=== PATIENT | female | born 1945 | race African-American/Black ===

== ENCOUNTER 2017-05-12 15:00 | Emergency (ER) | payer MEDICAID, MEDICARE ==
[~2017-05-12 15:00] MED LIST: ALBU0.63 NEB; AMLO2.5T PO; CINA30TA2 PO; FERR-26 PO; FURO20TA3 PO; HUM100VI SQ; Hydralazine Hcl PO; Isosorbide Mononitrate PO; LEVO100T5 PO; LISI-334 PO; PRED-220 PO; PRED2.5T PO
--- NOTE | 2017-05-12 15:05 | PHYS DOC ---
Past History Past Medical History: Diabetes, Hypertension, Renal Disease, Other Past Surgical History: No Surgical History, Cholecystectomy Alcohol Use: None Drug Use: None Adult General Chief Complaint Chief Complaint: low oxygen saturations [facility] HPI Patient is a 71 year old F who presents with low oxygen saturation. Lakshmi did not wear her CPAP last night. Her daughter states that when she does not wear her CPAP following day she has frequently been found to have low oxygen.. She does not currently feel short of breath however her oxygen saturation were found to be low at [place], her [facility], and by EMS. She has no other associated symptoms. She has no other exacerbating or alleviating factors. Review of Systems Review of Systems Constitutional: Denies fever or chills [] Eyes: Denies change in visual acuity, redness, or eye pain [] HENT: Denies nasal congestion or sore throat [] Respiratory: Negative except history of present illness Cardiovascular: No additional information not addressed in HPI [] GI: Denies abdominal pain, nausea, vomiting, bloody stools or diarrhea [] : Denies dysuria or hematuria [] Musculoskeletal: Denies back pain or joint pain [] Integument: Denies rash or skin lesions [] Neurologic: Denies headache, focal weakness or sensory changes [] Endocrine: Denies polyuria or polydipsia [] All other systems were reviewed and found to be within normal limits, except as documented in this note. Family History Family History No pertinent medical history was reported Current Medications Current Medications Current medications were reviewed Allergies Allergies Allergies Coded Allergies Type Severity Reaction Last Updated Verified amoxicillin Allergy Intermediate 09/30/14 No aspirin Allergy Intermediate 09/30/14 No clavulanic acid Allergy Intermediate 09/30/14 No gatifloxacin Allergy Intermediate 09/30/14 No peanut Allergy Intermediate 09/30/14 No Physical Exam Physical Exam Constitutional: Well developed, well nourished, no acute distress, non-toxic appearance. [] HENT: Normocephalic, atraumatic, bilateral external ears normal, oropharynx moist, no oral exudates, nose normal. [] Eyes: EOMI, conjunctiva normal, no discharge. [] Neck: Normal range of motion, no tenderness, supple, no stridor. [] Cardiovascular:Heart rate regular rhythm, Lungs & Thorax: Bilateral breath sounds clear to auscultation [] diminished bilaterally Abdomen: Bowel sounds normal, soft, no tenderness, no masses, no pulsatile masses. [] Skin: Warm, dry, no erythema, no rash. [] Back: No tenderness, no CVA tenderness. [] Extremities: No tenderness, no cyanosis, no clubbing, ROM intact, no edema. [] Neurologic: Alert and oriented X 3, normal motor function, normal sensory function, no focal deficits noted. [] Psychologic: Affect normal, judgement normal, mood normal. [] Current Patient Data Vital Signs Vital Signs Date Time Temp Pulse Resp B/P (MAP) Pulse Ox O2 Delivery O2 Flow Rate FiO2 05/12/17 17:11 91 24 128/63 (84) 92 Nasal Cannula 4.0 05/12/17 16:00 92 26 122/63 (82) 97 Nasal Cannula 4.0 05/12/17 15:18 99.3 90 28 NonRebreather Mask 99.0 Lab Results Laboratory Tests Test 05/12/17 15:26 05/12/17 15:49 Influenza Type A (Rapid) Negative (NEGATIVE) Influenza Type B (Rapid) Negative (NEGATIVE) White Blood Count 7.9 x10^3/uL (4.0-11.0) Red Blood Count 3.64 x10^6/uL (3.50-5.40) Hemoglobin 11.4 g/dL (12.0-15.5) Hematocrit 35.9 % (36.0-47.0) Mean Corpuscular Volume 99 fL (79-100) Mean Corpuscular Hemoglobin 31 pg (25-35) Mean Corpuscular Hemoglobin Concent 32 g/dL (31-37) Red Cell Distribution Width 13.3 % (11.5-14.5) Platelet Count 190 x10^3/uL (140-400) Neutrophils (%) (Auto) 83 % (31-73) Lymphocytes (%) (Auto) 5 % (24-48) Monocytes (%) (Auto) 11 % (0-9) Eosinophils (%) (Auto) 1 % (0-3) Basophils (%) (Auto) 0 % (0-3) Neutrophils # (Auto) 6.5 x10^3uL (1.8-7.7) Lymphocytes # (Auto) 0.4 x10^3/uL (1.0-4.8) Monocytes # (Auto) 0.8 x10^3/uL (0.0-1.1) Eosinophils # (Auto) 0.1 x10^3/uL (0.0-0.7) Basophils # (Auto) 0.0 x10^3/uL (0.0-0.2) Sodium Level 140 mmol/L (136-145) Potassium Level 5.0 mmol/L (3.5-5.1) Chloride Level 95 mmol/L (98-107) Carbon Dioxide Level 51 mmol/L (21-32) Anion Gap -6 (6-14) Blood Urea Nitrogen 15 mg/dL (7-20) Creatinine 1.1 mg/dL (0.6-1.0) Estimated GFR (Cockcroft-Gault) 59.6 Glucose Level 116 mg/dL (70-99) Calcium Level 10.6 mg/dL (8.5-10.1) FN-Flu-G-Type Natriuretic Peptide 3636 pg/mL (0-124) EKG EKG Normal sinus rhythm with occasional PVCs Radiology/Procedures Radiology/Procedures Chest x-ray Impressions: Mild congestion noted Course & Med Decision Making Course & Med Decision Making Pertinent Labs and Imaging studies reviewed. (See chart for details) [] Dragon Disclaimer Dragon Disclaimer This electronic medical record was generated, in whole or in part, using a voice recognition dictation system. Departure Departure: Impression: Primary Impression: Shortness of breath Additional Impression: Congestive heart failure Disposition: 01 HOME, SELF-CARE Condition: STABLE Referrals: RUBIA ORR MD (PCP) Patient Instructions: Shortness of Breath Additional Instructions: Lakshmi was seen in the emergency department for shortness of breath. No emergency medical condition was found on history or physical exam. She did have labs and imaging consistent with mild exacerbation of CHF. She was given a dose of Lasix in the emergency room with good urine output. She was able to maintain her oxygen saturations on her normal daily oxygen supplementation. She was advised to monitor her weight daily and to continue taking her Lasix. She is advised follow-up with her primary care doctor as soon as possible for further management. Problem Qualifiers Additional Impression: Congestive heart failure Congestive heart failure type: diastolic Congestive heart failure chronicity : acute on chronic Qualified Codes: I50.33 - Acute on chronic diastolic ( congestive) heart failure JOSLYN HENDRICKS MD May 12, 2017 15:05
--- NOTE | 2017-05-12 15:33 | RAD ---
AP portable chest radiograph 05/12/2017 Clinical History: Shortness of breath. An AP portable erect digital radiograph of the chest was obtained. Comparison study is dated 05/26/2015. The cardiac silhouette is mildly enlarged. The thoracic aorta is tortuous. Areas of infiltrate/atelectasis are seen involving both upper lobes, left greater than right. No pneumothorax or definite pleural effusion is seen. Degenerative changes are seen involving the thoracic spine. Impression: Areas of atelectasis and/or infiltrate are seen involving both upper lobes.
[2017-05-12] MEDS ORDERED: FUROSEMIDE 40 MG/4 ML VIAL IVP ONE (15:50)
--- NOTE | 2017-05-12 16:04 | EKG ---
[address] [address] Test Date: 2017-05-12 Test Time: 15:14:04 Pat Name: CYNTHIA ARCHER Department: Room: Gender: F Deportation Examiner: ARELIS : 1945 Requested By: JOSLYN HENDRICKS Order Number: [id number] Reading MD: John Huerta Measurements Intervals [place] Rate: 92 P: 64 [place]: 162 QRS: 116 QRSD: 74 T: 26 QT: 324 QTc: 405 Interpretive Statements SINUS RHYTHM VENTRICULAR PREMATURE COMPLEX(ES) LEFT ATRIAL ABNORMALITY ABNORMAL RIGHT AXIS DEVIATION ABNORMAL ECG Electronically Signed On 05-16-2017 16:32:40 FULL [employer]GE BOOKKEEPER by John Huerta
[2017-05-12 16:22] LABS: INFLUENZA A PATIENT NEGATIVE (NEGATIVE); INFLUENZA B PATIENT NEGATIVE (NEGATIVE)
[2017-05-12 16:24] LABS: BASO % 0 % (0-3); EOS # 0.1 x10^3/uL (0.0-0.7); EOS % 1 % (0-3); HEMATOCRIT 35.9 % (36.0-47.0); HEMOGLOBIN 11.4 g/dL (12.0-15.5); LYMPH # 0.4 x10^3/uL (1.0-4.8); LYMPH % 5 % (24-48); MEAN CORPUSCULAR HEMOGLOBIN 31 pg (25-35); MEAN CORPUSCULAR HGB CONC 32 g/dL (31-37); MEAN CORPUSCULAR VOLUME 99 fL (79-100); MONO # 0.8 x10^3/uL (0.0-1.1); MONO % 11 % (0-9); NEUT # 6.5 x10^3uL (1.8-7.7); NEUT % 83 % (31-73); PLATELET COUNT 190 x10^3/uL (140-400); RED BLOOD COUNT 3.64 x10^6/uL (3.50-5.40); RED CELL DISTRIBUTION WIDTH 13.3 % (11.5-14.5); WHITE BLOOD COUNT 7.9 x10^3/uL (4.0-11.0)
[2017-05-12 16:46] LABS: CALCIUM 10.6 mg/dL (8.5-10.1); CREATININE 1.1 mg/dL (0.6-1.0); GFR 59.6
[2017-05-12 19:35] VITALS: BP 127/61
[2017-05-12 23:07] LABS: % EOS 1 % (0-5); % LYMPHS 7 % (24-48); % MONOS 4 % (0-10); % SEGS 88 % (35-66)
[2017-05-12 23:09] LABS: OVALOCYTES OCC; PLT ESTIMATE ADEQUATE (ADEQUATE); POLYCHROMASIA SLIGHT
== END 2017-05-12 19:50 | disposition home or self-care (01) ==
LOC: ER 15:00
DX: I50.9 Heart failure, unspecified (principal); I11.0 Hypertensive heart disease with heart failure; N28.9 Disorder of kidney and ureter, unspecified; E11.9 Type 2 diabetes mellitus without complications; Z88.1 Allergy status to other antibiotic agents; Z88.6 Allergy status to analgesic agent; Z91.010 Allergy to peanuts
CPT/HCPCS: 36415; 71045; 80048; 83880; 85007; 85025; 87804; 93005; 96374; 99285; J1940

== ENCOUNTER 2017-07-08 19:34 | Emergency (ER) | payer MEDICARE ==
[~2017-07-08] VITALS: Ht 152.4 cm; Wt 78.4 kg
[~2017-07-08 19:34] MED LIST changes: -FERR-26 PO; +FERR325T14 PO
--- NOTE | 2017-07-08 19:53 | ED.ADGEN ---
Past History Past Medical History: COPD, Diabetes, Hypothyroid, Pneumonia, Renal Failure, Other Past Surgical History: Other Alcohol Use: None Drug Use: None Adult General Chief Complaint Chief Complaint " Ok.."- Pt responds minimal to questions- [facility] HPI Patient is a 71 year old female who presents with above hx and complaints of decrease level of awareness through the day per her daughter.. Pt. fell earlier to day...and later today has become more sleepy. Pt. currently pt is extremely sedate. Patient does have a history of sarcoid with marked lung scaring. Patient recently had a pelvic fracture at the first year and was in rehabilitation until 05/19, then came to live with daughter. Pt. fell earlier today when she was getting out of bed. Pt. also had recent history of upper respiratory congestion and did not wear her CPAP last night and today when she took naps. Pt. does have hx of Sleep apnea and nocturnal hypoxia. . Pt. does wear oxygen at 2 lit when sleeping. Pt. has plans to see Dr. Martini at [facility] for her Sarcoid lung problems and follows with a local physician Dr. Rajan at [facility]. No specific ill contacts or recent travel. Patient in past has expressed wishes for full code status. Pt. has hx of CHF and COPD in past. Pt. has hx of multiple food and drug allergies. Pt. has not had any additional pain meds in last 48 hrs. per daughter. Review of Systems Review of Systems Pt is poor historian- min. response to questions and noxious stiumuli- Review systerms per daughter. Constitutional: Denies fever or chills [] Eyes: Denies change in visual acuity, redness, or eye pain [] HENT: Denies nasal congestion or sore throat [] Respiratory: Hx. of cough and shortness of breath [] Cardiovascular: No additional information not addressed in HPI [] GI: Denies abdominal pain, nausea, vomiting, bloody stools or diarrhea [] : Denies dysuria or hematuria [] Musculoskeletal: Denies back pain or joint pain []Hx. Pelvic Fx 05/01/17 Integument: Denies rash or skin lesions [] Neurologic: Denies headache, focal weakness or sensory changes []Hx. of increased confusion this afternoon. Endocrine: Denies polyuria or polydipsia [] All other systems were reviewed and found to be within normal limits, except as documented in this note. Family History Family History Noncontributory to presentation Current Medications Current Medications Current Medications Medications (Trade) Dose Ordered Sig/Kirit Start Time Stop Time Status Last Admin Dose Admin Albuterol/ Ipratropium (Duoneb) 3 ml STK-MED ONCE 07/09/17 03:58 07/09/17 03:59 DC Azithromycin (Zithromax) 500 mg STK-MED ONCE 07/09/17 01:37 07/09/17 01:38 DC Azithromycin 500 mg/Sodium Chloride 250 ml @ 250 mls/hr 1X ONCE 07/08/17 23:30 07/09/17 00:29 DC 07/09/17 01:54 250 MLS/HR Furosemide (Lasix) 40 mg 1X ONCE 07/08/17 22:30 07/08/17 22:58 DC 07/09/17 01:53 40 MG Info (Do NOT chart on this entry -- for MONITORING) 1 each PRN DAILY PRN 07/08/17 23:45 07/09/17 06:08 DC Iohexol (Omnipaque 300 Mg/ml) 75 ml 1X ONCE 07/08/17 23:45 07/08/17 23:46 DC 07/09/17 05:12 75 ML Methylprednisolone Sodium Succinate (SOLU-Medrol 125MG VIAL) 125 mg 1X ONCE 07/08/17 22:30 07/08/17 22:58 DC 07/09/17 01:51 125 MG Midazolam HCl (Versed) 5 mg STK-MED ONCE 07/09/17 00:25 07/09/17 00:26 DC Norepinephrine Bitartrate (Levophed) 4 mg STK-MED ONCE 07/09/17 00:35 07/09/17 00:36 DC Propofol 100 ml @ As Directed STK-MED ONCE 07/09/17 05:55 07/09/17 05:56 DC Sodium Chloride 250 ml @ As Directed STK-MED ONCE 07/09/17 01:37 07/09/17 01:38 DC See nursing for home meds. Allergies Allergies Allergies Coded Allergies Type Severity Reaction Last Updated Verified amoxicillin Allergy Intermediate 05/12/17 No aspirin Allergy Intermediate 05/12/17 No clavulanic acid Allergy Intermediate 05/12/17 No gatifloxacin Allergy Intermediate 05/12/17 No peanut Allergy Intermediate 05/12/17 No Penicillins Allergy Unknown 05/12/17 Yes budesonide Allergy Unknown 05/12/17 Yes codeine Allergy Unknown 05/12/17 Yes formoterol Allergy Unknown 05/12/17 Yes soy Allergy Unknown 05/12/17 Yes Physical Exam Physical Exam Constitutional: moderately acute respiratory distress, very sedated appearance. Trial Bi-pap did not improved LOC. HENT: Normocephalic, atraumatic, bilateral external ears normal, oropharynx moist, no oral exudates, nose rhinorrhea. Upper dentures in. Has a poor gag. Eyes: PERRLA, EOMI, conjunctiva normal, no discharge. [] Neck: Normal range of motion, no tenderness, supple, no stridor. [] JVD sitting position. Cardiovascular:Tachycardia Heart rate regular rhythm, no murmur []PMI to Lt. Lungs & Thorax: Bilateral breath sounds diffuse crackles and wheezes on auscultation [] Abdomen: Bowel sounds normal, soft, no tenderness, liver mass, no pulsatile masses. Multiple old surgery, hernia, scars, mild distention Skin: Warm, dry, no erythema, no rash. Poor turgor Back: No tenderness, no CVA tenderness. [] Extremities: No tenderness, no cyanosis, no clubbing, ROM intact, no edema. Arthritic changes. Neurologic: Alert to name only, moves all extremities with noxious stimuli, very sedated Psychologic: Affect flat and depressed mood, very sedate Current Patient Data Vital Signs Vital Signs Date Time Temp Pulse Resp B/P (MAP) Pulse Ox O2 Delivery O2 Flow Rate FiO2 07/08/17 23:45 98 20 133/59 (83) 96 Room Air 4.0 07/08/17 19:34 99.6 Lab Results Laboratory Tests Test 07/08/17 20:15 07/08/17 20:21 07/08/17 20:39 07/08/17 22:55 White Blood Count 6.1 x10^3/uL (4.0-11.0) Red Blood Count 3.85 x10^6/uL (3.50-5.40) Hemoglobin 11.9 g/dL (12.0-15.5) L Hematocrit 38.3 % (36.0-47.0) Mean Corpuscular Volume 100 fL (79-100) Mean Corpuscular Hemoglobin 31 pg (25-35) Mean Corpuscular Hemoglobin Concent 31 g/dL (31-37) Red Cell Distribution Width 13.2 % (11.5-14.5) Platelet Count 112 x10^3/uL (140-400) L Neutrophils (%) (Auto) 80 % (31-73) H Lymphocytes (%) (Auto) 7 % (24-48) L Monocytes (%) (Auto) 10 % (0-9) H Eosinophils (%) (Auto) 2 % (0-3) Basophils (%) (Auto) 1 % (0-3) Neutrophils # (Auto) 4.9 x10^3uL (1.8-7.7) Lymphocytes # (Auto) 0.4 x10^3/uL (1.0-4.8) L Monocytes # (Auto) 0.6 x10^3/uL (0.0-1.1) Eosinophils # (Auto) 0.1 x10^3/uL (0.0-0.7) Basophils # (Auto) 0.0 x10^3/uL (0.0-0.2) Erythrocyte Sedimentation Rate 24 (0-25) Prothrombin Time 10.8 SEC (9.4-11.4) Prothrombin Time INR 1.0 (0.9-1.1) PTT 30 SEC (23-33) Sodium Level 144 mmol/L (136-145) Potassium Level 5.3 mmol/L (3.5-5.1) H Chloride Level 100 mmol/L (98-107) Carbon Dioxide Level 47 mmol/L (21-32) H Anion Gap -3 (6-14) L Blood Urea Nitrogen 21 mg/dL (7-20) H Creatinine 1.1 mg/dL (0.6-1.0) H Estimated GFR (Cockcroft-Gault) 59.6 Glucose Level 182 mg/dL (70-99) H Calcium Level 10.8 mg/dL (8.5-10.1) H Magnesium Level 2.4 mg/dL (1.8-2.4) Ammonia 22 mcmol/L (11-34) Creatine Kinase 23 U/L (26-192) L Creatine Kinase MB (Mass) 0.9 ng/mL (0.0-3.6) Creatine Kinase MB Relative Index 3.9 % (0-4) Troponin I Quantitative < 0.017 ng/mL (0-0.055) AX-Wcg-W-Type Natriuretic Peptide 1083 pg/mL (0-124) H Ethyl Alcohol Level < 10 mg/dL (0-10) Glucose (Fingerstick) 188 mg/dL (70-99) H Urine Collection Type Unknown Urine Color Yellow Urine Clarity Clear Urine pH 5.5 Urine Specific [place] 1.020 Urine Protein 100 mg/dl (NEG-TRACE) Urine Glucose (UA) Neg mg/dL (NEG) Urine Ketones (Stick) Neg mg/dL (NEG) Urine Blood Neg (NEG) Urine Nitrite Neg (NEG) Urine Bilirubin Neg (NEG) Urine Urobilinogen Dipstick 1 mg/dL (0.2 mg/dL) Urine Leukocyte Esterase Neg (NEG) Urine RBC 3-5 /HPF (0-2) Urine WBC 1-4 /HPF (0-4) Urine Squamous Epithelial Cells Few /LPF Urine Bacteria 0 /HPF (0-FEW) Urine Hyaline Casts Mod /HPF Urine Mucus Mod /LPF Urine Opiates Screen Neg (NEG) Urine Methadone Screen Neg (NEG) Urine Barbiturates Neg (NEG) Urine Phencyclidine Screen Neg (NEG) Urine Amphetamine/Methamphetamine Neg (NEG) Urine Benzodiazepines Screen Neg (NEG) Urine Cocaine Screen Neg (NEG) Urine Cannabinoids Screen Neg (NEG) Urine Ethyl Alcohol Neg (NEG) Blood pH 7.15 (7.35-7.45) *L Blood Gas PCO2 > 130 mmHg (35-45) *H Blood Gas PO2 69 mmHg (80-100) L Blood Gas HCO3 mmol/L (22-26) Arterial Bld O2 Saturation (Calc) % (92-99) FiO2 38 % Test 07/09/17 02:00 07/09/17 03:35 Influenza Type A (Rapid) Negative (NEGATIVE) Influenza Type B (Rapid) Negative (NEGATIVE) Blood pH 7.52 (7.35-7.45) H Blood Gas PCO2 57 mmHg (35-45) H Blood Gas PO2 82 mmHg (80-100) Blood Gas HCO3 47 mmol/L (22-26) H Arterial Bld O2 Saturation (Calc) 97 % (92-99) FiO2 50 % EKG EKG My interpretation of EKG shows sinus sinus tachycardia 102 bpm. There is some bimodal P-wave's and right axis. No findings acute STEMI or contralateral changes.[] Radiology/Procedures Radiology/Procedures My interpretation of chest x-ray shows diffuse scarring, cystic and ground glass changes and increased cephalization with cardiomegaly.[] Pelvic films reflect findings of prior pelvic fx. My interpretation CT of head shows no shift, mass, edema, bleed, or fracture. Does have some findings consistent with generalized atrophy and white matter disease changes. My interpretation CT of neck shows degenerative joint changes but no obvious fracture. CT results pending at time transfer- Appears to have no central pulmonary emboli , Cystic changes, scaring, Liver mass 7.5 to 8 cm ? Films clouded to [facility]. Course & Med Decision Making Course & Med Decision Making Pertinent Labs and Imaging studies reviewed. (See chart for details). Pt. intubated and Central line placed . See Nursing flow sheet. ET tube 7.0 place with video scope to 22 cm at lip after 2 mg Versed and 100 mg succinylcholine. NG placed. Placements verified by chest x-ray. Right I J Central line placed for pressure support and IV access. Right IJ prepped with kit prep. And sterile draping. Trendelenburg position and Seldinger technique. Sutured in place with Biopatch and sterile dressing. Placement verified by chest x-ray. Discussed presentation, testing with Dr. Muhammad at [facility]- will accept pt in transfer . Daughter however states son wants pt. to be transfer to . Discussed with Transfer nurse. They will call back. Critical care time 120 minutes.-Vent management, titration and management of pressors. Discussed presentation, testing and tx plan with Triage at - Pending call back Dr. Mcfarland- 400 hrs. [] Final Impression Final Impression 1. Respiratory Failure- Hypercarbia and Hypoxia 2. CHF- BNP 1083 3. Mental Status Change- suspect primary cause is hypercarbia 4. Anemia- 11,9 5. Hyperkalemia 5.3 6. Elevated Creat. 1.1 7. DM- 182 8. Thrombocytopenia 112 9. Sarcoid Lung 10. Hx. Fx Pelvis- May 01, 2017- 11. Liver Mass Problems: Dragon Disclaimer Dragon Disclaimer This electronic medical record was generated, in whole or in part, using a voice recognition dictation system. GUDELIA CANO MD Jul 08, 2017 19:53
--- NOTE | 2017-07-08 20:02 | RAD ---
CT brain without contrast. HISTORY: Decreased mentation, code stroke, fall CT scan of the brain was done without contrast. A skull fracture is not identified. There is a skull defect anteriorly unchanged from old studies. Visualized sinuses are clear. There is no mass or shift of the midline. There is no intracranial hemorrhage or subdural hematoma. Ventricles are normal in size. An acute CVA is not identified. The ER physician was called and notified of findings at 7:57 PM IMPRESSION: 1. No intracranial hemorrhage or acute CVA noted. PQRS Compliance Statement: One or more of the following individualized dose reduction techniques were utilized for this examination: 1. Automated exposure control 2. Adjustment of the mA and/or kV according to patient size 3. Use of iterative reconstruction technique FOR INTERNAL CODING PURPOSES Critical result: RESULT CODE: (C) Electronically signed by: Rommel Walden MD (07/08/2017 7:59 PM) [facility]
--- NOTE | 2017-07-08 20:32 | EKG ---
[address] [address] Test Date: 2017-07-08 Test Time: 20:29:00 Pat Name: CYNTHIA ARCHER Department: Room: Gender: F [place] Hand: MYKE : 1945 Requested By: GUDELIA CANO Order Number: [id number] Reading MD: Measurements Intervals [place] Rate: 102 P: 63 MS: 152 QRS: 104 QRSD: 80 T: 41 QT: 310 QTc: 408 Interpretive Statements SINUS TACHYCARDIA LEFT ATRIAL ABNORMALITY RIGHTWARD AXIS ABNORMAL ECG RI6.01 Compared to ECG 05/12/2017 15:14:04 Sinus rhythm no longer present
--- NOTE | 2017-07-08 20:33 | RAD ---
CT CERVICAL SPINE WO CONTRAST dated 07/08/2017 7:52 PM Indication:Fall today Comparison: No comparison is available. Technique: One or more of the following individualized dose reduction techniques were utilized for this examination: 1. Automated exposure control 2. Adjustment of the mA and/or kV according to patient size 3. Use of iterative reconstruction technique Findings: No cervical spine fracture or subluxation is seen. The disc spaces are well maintained. There is no narrowing of the spinal canal or bony foraminal stenosis. The paraspinous soft tissues are normal. IMPRESSION: Unremarkable CT of the cervical spine. Electronically signed by: Carleen Murphy MD (07/08/2017 8:30 PM) [facility]
[2017-07-08 21:29] LABS: CALCIUM 10.8 mg/dL (8.5-10.1); CREATININE 1.1 mg/dL (0.6-1.0); GFR 59.6; MAGNESIUM 2.4 mg/dL (1.8-2.4); POTASSIUM 5.3 mmol/L (3.5-5.1)
[2017-07-08 21:31] LABS: BASO % 1 % (0-3); EOS # 0.1 x10^3/uL (0.0-0.7); EOS % 2 % (0-3); HEMATOCRIT 38.3 % (36.0-47.0); HEMOGLOBIN 11.9 g/dL (12.0-15.5); LYMPH # 0.4 x10^3/uL (1.0-4.8); LYMPH % 7 % (24-48); MEAN CORPUSCULAR HEMOGLOBIN 31 pg (25-35); MEAN CORPUSCULAR HGB CONC 31 g/dL (31-37); MEAN CORPUSCULAR VOLUME 100 fL (79-100); MONO # 0.6 x10^3/uL (0.0-1.1); MONO % 10 % (0-9); NEUT # 4.9 x10^3uL (1.8-7.7); NEUT % 80 % (31-73); PLATELET COUNT 112 x10^3/uL (140-400); RED BLOOD COUNT 3.85 x10^6/uL (3.50-5.40); RED CELL DISTRIBUTION WIDTH 13.2 % (11.5-14.5); WHITE BLOOD COUNT 6.1 x10^3/uL (4.0-11.0)
[2017-07-08 21:52] LABS: BARBITURATES NEG (NEG); BENZODIAZEPINES NEG (NEG); CANNABINOIDS NEG (NEG); COCAINE NEG (NEG); METHADONE NEG (NEG); OPIATES NEG (NEG); PHENCYCLIDINE NEG (NEG)
[2017-07-08 21:53] LABS: AMPHETAMINE/METHAMPHETAMINE NEG (NEG)
[2017-07-08 21:58] LABS: BACTERIA,URINE 0 /HPF (0-FEW); BILIRUBIN,URINE NEG (NEG); CLARITY,URINE CLEAR; COLOR,URINE YELLOW; GLUCOSE,URINE NEG (NEG); NITRITE,URINE NEG (NEG); UROBILINOGEN,URINE 1 mg/dL (0.2 mg/dL)
[2017-07-08 21:59] LABS: HYALINE CASTS, URINE MOD /HPF; SQUAMOUS EPITHELIAL CELL,UR FEW /LPF
[2017-07-08] MEDS ORDERED: methylPREDNISolone SOD SUCC PF 125 MG/2 ML VIAL. IV ONE (22:30)
[2017-07-08] MEDS ORDERED: FUROSEMIDE 40 MG/4 ML VIAL IVP ONE (22:30)
[2017-07-08] MEDS ORDERED: IPRATRPIUM/ALBUTEROL 0.5/2.5MG 3 ML NEBU. NEB ONE (22:30)
[2017-07-08 22:41] LABS: SEDIMENTATION RATE 24 (0-25)
[2017-07-08 23:14] LABS: BGAS PH 7.15 (7.35-7.45); BGAS PO2 69 mmHg (80-100)
[2017-07-08 23:15] LABS: FIO2 38 %
[2017-07-08] MEDS ORDERED: AZITHROMYCIN 500 MG in IV NORMAL SALINE 250ML 250 ML IV ONE (23:30)
[2017-07-08] MEDS ORDERED: CONTRAST GIVEN MC PRN (23:45)
[2017-07-08] MEDS ORDERED: IOHEXOL 300 MG/ML 75 ML VIAL. IV ONE (23:45)
[2017-07-09] MEDS ORDERED: PROPOFOL 100 ML IV ONE ×3 (00:06→05:55)
[2017-07-09] MEDS ORDERED: PROPOFOL 10,000 MCG/ML (20ML) VIAL IV ONE (00:25)
[2017-07-09] MEDS ORDERED: MIDAZOLAM HCL PF 5 MG/5 ML VIAL. ONE ×3 (00:25→00:30)
[2017-07-09] MEDS ORDERED: NOREPINEPHRINE BITARTRATE 4 MG/4 ML VIAL. IV ONE ×4 (00:28→00:35)
[2017-07-09] MEDS ORDERED: IV NORMAL SALINE 250 ML BAG ONE (00:30)
[2017-07-09] MEDS ORDERED: 0.9 % SODIUM CHLORIDE 150ML 150 ML ONE (00:30)
[2017-07-09] MEDS ORDERED: PROPOFOL 10,000 MCG/ML (100ML) VIAL IV ONE ×3 (00:30)
[2017-07-09] MEDS ORDERED: SODIUM CHLORIDE ONE (00:30)
[2017-07-09] MEDS ORDERED: IV NORMAL SALINE 250ML 250 ML ONE ×2 (00:35→01:37)
[2017-07-09] MEDS ORDERED: AZITHROMYCIN 500 MG VIAL. IV ONE (01:37)
[2017-07-09 03:42] LABS: INFLUENZA A PATIENT NEGATIVE (NEGATIVE); INFLUENZA B PATIENT NEGATIVE (NEGATIVE)
[2017-07-09 03:52] LABS: BGAS PH 7.52 (7.35-7.45)
[2017-07-09] MEDS ORDERED: IPRATRPIUM/ALBUTEROL 0.5/2.5MG 3 ML NEBU. ONE (03:58)
--- NOTE | 2017-07-09 05:30 | RAD ---
INDICATION: Omni 300, 60ml IV. Reduced dose per GFR policy. Dyspnea, hypoxia, hx sarcoid. Pt intubated COMPARISON: Chest x-ray from earlier same day and CT chest May 2015 TECHNIQUE: Axial CT images obtained through the chest. Intravenous contrast utilized. Angiogram 3D images processed per protocol. One or more of the following individualized dose reduction techniques were utilized for this examination: 1. Automated exposure control; 2. Adjustment of the mA and/or kV according to patient size; 3. Use of iterative reconstruction technique. FINDINGS: Endotracheal tube midthoracic trachea. Enteric tube seen coursing into the stomach. Cystic changes within the bilateral lungs. Linear opacities bilaterally with some more patchy focal and masslike component. There is also some groundglass opacities. No evidence of pneumothorax. Suspected lesion at the anterior aspect of the liver appears mixed attenuation. This region is not formally evaluated but likely measures greater than 7.5 cm. Cystic lesion partially seen left kidney measuring 32 mm. Thoracic aorta lumen is not well evaluated on this exam secondary to minimal contrast within. There is calcific atherosclerosis seen without definite aneurysm. Right-sided central venous catheter seen coursing into SVC. Soft tissue density anterior mediastinum measuring up to about 18 mm, decreased from prior. There are some suspected enlarged lymph nodes within the mediastinum. For example adjacent to the lalo measuring up to about 10 mm. Degenerative changes spine with scoliotic curvature. Old right clavicle fracture with nonunion. There are some posterior fusion defects within the spine. No central pulmonary embolus. IMPRESSION: 1. No central pulmonary embolus. Limited peripherally secondary to motion. 2. Groundglass and more focal masslike opacities are seen within the bilateral lungs. A portion of this was present on prior and could be chronic in nature but superimposed regions of infiltrate as well as small airway inflammation or mild edema is possible given the superimposed opacities. 3. Lymphadenopathy is seen within the mediastinum. Could be reactive in nature but follow-up could be obtained to ensure no growth to exclude neoplastic causes. Given the patient's reported history of sarcoid it is possible that this is secondary to sarcoid as well. 4. The liver is only partially seen and there is a mass suspected within. Nonemergent liver protocol MRI could better evaluate. Electronically signed by: Levar Coats MD (07/09/2017 5:27 AM) [place] [id number]
--- NOTE | 2017-07-09 07:49 | RAD ---
Pelvis one view. History: Pain Single view was taken of the pelvis. The pelvis is obliqued to the right which makes evaluation very difficult. Review of the abdominal films from July 09 shows pubic rami fractures at the margin of the film. CT of the pelvis could be of benefit or additional views the pelvis including AP and both obliques with better technique would be of benefit for better evaluation. There is degenerative change and degenerative disc disease with facet arthritis in the lower lumbar spine. Impression: 1. Pubic rami fractures which are poorly seen on the current film. 2. Degenerative changes in the lower lumbar spine.
--- NOTE | 2017-07-09 07:52 | RAD ---
Supine and upright abdomen. History: Pain Supine and upright views were taken of the abdomen. There is an NG tube in the stomach. There is a nonspecific bowel gas pattern. There is no obvious free air on the upright view. The upright view is limited as the patient sitting and not a true upright view. At the lower margin of the film are bilateral superior pubic rami fractures, age of the fractures are indeterminate. There is marked degenerative change in the lower lumbar spine. There is no bowel obstruction. Impression: 1. Limited study, no bowel obstruction noted. 2. NG tube in the stomach. 3. Bilateral pubic rami fractures.
--- NOTE | 2017-07-09 07:57 | RAD ---
AP chest. History: Intubated AP view was taken of the chest. Endotracheal tube is in good position. There is a right central line in good position, there is no pneumothorax. NG tube extends into the stomach. There are bilateral areas of infiltrate without change. The heart is enlarged. 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 Impression: 1. Tubes and lines in good position. 2. No other change.
--- NOTE | 2017-07-09 09:16 | RAD ---
Portable AP chest. History: Mental status change AP view was taken of the chest. The heart is enlarged. There are chronic bilateral infiltrates and fibrosis. The pattern is similar to the study from May 12 but a mild superimposed infiltrate would be difficult to exclude. Impression: 1. Chronic infiltrates and fibrosis. 2. Little change from the recent study although worsening compared to old exams. 3. It would be difficult to exclude a mild superimposed pneumonia. 4. Cardiomegaly
[2017-07-10 10:51] LABS: BGAS PCO2 > 130 mmHg (35-45)
[2017-07-11 04:10] VITALS: BP 110/60
== END 2017-07-09 06:07 | disposition short-term general hospital (02) ==
LOC: ER 19:34
DX: J96.92 Respiratory failure, unspecified with hypercapnia (principal); J96.91 Respiratory failure, unspecified with hypoxia; I50.9 Heart failure, unspecified; R41.82 Altered mental status, unspecified; E11.9 Type 2 diabetes mellitus without complications; D69.6 Thrombocytopenia, unspecified; D86.0 Sarcoidosis of lung; R16.0 Hepatomegaly, not elsewhere classified; R79.89 Other specified abnormal findings of blood chemistry; E03.9 Hypothyroidism, unspecified; E87.5 Hyperkalemia; J44.9 Chronic obstructive pulmonary disease, unspecified; Z87.81 Personal history of (healed) traumatic fracture; Z88.6 Allergy status to analgesic agent; Z88.1 Allergy status to other antibiotic agents; Z88.5 Allergy status to narcotic agent; Z91.010 Allergy to peanuts; Z88.8 Allergy status to other drugs, medicaments and biological substances; Z91.018 Allergy to other foods; Z88.0 Allergy status to penicillin
CPT/HCPCS: 31500; 36415; 36556; 70450; 71045; 71275; 72125; 72170; 74021; 80048; 80307; 81001; 82140; 82553; 82803; 82947; 83735; 83880; 84484; 85025; 85610; 85651; 85730; 87040; 87205; 87804; 93005; 94002; 94660; 96365; 96375; 99291; 99292; G0480; J0456; J1940; J2250; J2704; J2930; J7050; Q9967; G0479